=== PATIENT | female | born 1980 ===

== ENCOUNTER → 2021-11-28 | Outpatient (CLI) | payer OTHER ==
[~2021-11-28] MED LIST: CRUTCH4 USE; HYDACE5 PO; HYDCOR2.5C PR; NAPR550 PO; OXYACE7.5T PO; RXOXYACE PO; SULTRIDS PO
[2021-11-29 15:11] LABS: HPV 16 Negative (Negative); HPV 18 Negative (Negative); HPV OTHER HR TYPES Positive (Negative)
== END | disposition home or self-care (01) ==
LOC: LAB 16:00 → LAB SHORT 16:00
PROVIDERS: Family Medicine
DX: Z12.4 Encounter for screening for malignant neoplasm of cervix (principal)
CPT/HCPCS: 87624; G0123